=== PATIENT | female | born 1955 | race Caucasian/White ===

== ENCOUNTER 2021-02-10 10:51 | Outpatient (CLI) | payer MEDICARE, OTHER, SELFPAY ==
--- NOTE | 2021-02-10 11:13 | MR_ITS ---
WS: [id number] MRI HEAD WITH CONTRAST TECHNIQUE: Sagittal T1, T2 axial, T2 axial FLAIR, axial susceptibility weighted imaging, axial diffus ion weighted images, and coronal T2 images were obtained. Pre and post-T1 axial and post T1 coronal i mages. ADC and FSPGR images. CLINICAL INFORMATION: G35 - Multiple sclerosis COMPARISON: MRI and October 2014 FINDINGS: No evidence of restricted diffusion to suggest acute ischemia. Ventricular system and basal cisterns are patent. Moderate patchy supratentorial white matter lesions relatively stable in appearance since April 27, 2018. New small demyelinating lesion in the left periventricular atrial white matter. Additional new small lesion in the right cerebellum. Moderate parenchymal volume loss is unchanged. N o significant atrophy of the corpus callosum. Mild T1 hypointense lesion load. No hemosiderin on susceptibly weighted images. Normal optic chiasm a nd pituitary infundibulum. Mild symmetric atrophy temporal lobes and hippocampal formations. Normal c avernous sinuses and Meckel's cave. No abnormal gadolinium enhancement to indicate active disease. No rmal visualized dural venous sinuses. MR/MR head wo/w con [id number] IMPRESSION: 1. No enhancing lesions to indicate active disease. 2. New small lesion in the left periatrial white matter measuring 6 mm. Additi onal new small lesion in the right cerebellum. No enhancement. 3. Otherwise stable moderate supratentorial white matter changes compatible wi th demyelinating disease. 4. Moderate parenchymal volume loss is unchanged. 5. Mild T1 hypointense lesion load. 6. No significant atrophy of the corpus callosum. 7. Normal optic chiasm and pituitary infundibulum.
[2021-02-10] MEDS: gadobenate dimeglumine 20 mL vial IV (12:43)
== END 2021-02-10 10:52 | disposition home or self-care (01) ==
LOC: RADSHAW 11:00
PROVIDERS: Family Provider Family Medicine; PCP Family Medicine; Visit Provider Specialist
DX: G35 Multiple sclerosis (principal)
CPT/HCPCS: 70553; A9577

== ENCOUNTER 2021-02-26 12:04 | Outpatient (CLI) | payer MEDICARE, OTHER, SELFPAY ==
--- NOTE | 2021-02-26 11:45 | MR_ITS ---
WS: [id number] MRI CERVICAL SPINE NONCONTRAST AND CONTRAST TECHNIQUE: Sagittal T1, T2 and STIR imaging. Axial T2, gradient, and fiesta imaging. Post gadolinium imaging was obtained. CLINICAL INFORMATION: G35 - Multiple sclerosis COMPARISON: September 11 FINDINGS: Straightening of the normal cervical lordosis. Chronic demyelinating plaques in the cervical cord. No abnormal gadolinium enhancement to indicate active disease. Number and distribution of lesions is no t significantly changed. No significant cord atrophy. Mild spondylitic changes. C2-C3: Normal. C3-C4: Mild osteophytic ridging. Mild right greater than left bony foraminal narrowing. Mild facet ar thropathy. Spinal canal is patent. C4-C5: Mild disc osteophytic ridging. Mild central canal stenosis. Moderate bilateral bony foraminal narrowing. Mild central canal stenosis. C5-C6: Mild disc bulging with osteophytic ridging. Moderate left and no significant right foraminal n arrowing. Mild facet arthropathy. C6-C7: Disc osteophyte complex with endplate ridging. Mild central canal stenosis. Moderate to severe bilateral bony foraminal narrowing. C7-T1: Mild left and no significant right foraminal narrowing. Spinal canal is patent. Visualized brain stem structures: Normal. Prevertebral soft tissues: Normal. MR/MR cervical spine wo/w [id number] IMPRESSION: 1. Straightening of the normal cervical lordosis with mild spondylitic changes . 2. Chronic demyelinating plaques in the cervical cord not significantly change d from previous. No enhancing lesions to indicate active disease. 3. No significant cord atrophy. 4. Mild central canal stenosis C4-C5 and C6-C7. 5. Bony foraminal narrowing described above.
[2021-02-26] MEDS: gadobenate dimeglumine 20 mL vial IV (13:50)
== END 2021-02-26 12:05 | disposition home or self-care (01) ==
PROVIDERS: PCP Family Medicine; Visit Provider Specialist
DX: G35 Multiple sclerosis (principal); M48.02 Spinal stenosis, cervical region
CPT/HCPCS: 72156; A9577

== ENCOUNTER → 2021-03-11 14:57 | Outpatient (BNVA) | payer MEDICARE, OTHER, SELFPAY | PROVIDERS: PCP Family Medicine; Visit Provider Specialist | DX: G35 Multiple sclerosis (principal); F17.210 Nicotine dependence, cigarettes, uncomplicated | CPT/HCPCS: 99215 ==

== ENCOUNTER → 2021-09-11 16:25 | Outpatient (BNVA) | payer MEDICARE, SELFPAY | PROVIDERS: PCP Family Medicine; Visit Provider Specialist | DX: G35 Multiple sclerosis (principal); F17.210 Nicotine dependence, cigarettes, uncomplicated | CPT/HCPCS: 99213 ==

== ENCOUNTER 2021-10-29 06:00 | Outpatient (RCR) | payer MEDICARE, SELFPAY | END 2021-11-01 23:59 | disposition home or self-care (01) | LOC: GPT 06:00 | PROVIDERS: PCP Family Medicine; Referring Provider Specialist; Visit Provider Specialist | DX: G35 Multiple sclerosis (principal); M62.81 Muscle weakness (generalized); R26.81 Unsteadiness on feet; R26.9 Unspecified abnormalities of gait and mobility | CPT/HCPCS: 97110; 97162 ==

== ENCOUNTER 2021-11-02 | Outpatient (RCR) | payer MEDICARE, SELFPAY | END 2021-12-02 23:59 | disposition home or self-care (01) | LOC: GPT | PROVIDERS: PCP Family Medicine; Referring Provider Specialist; Visit Provider Specialist | DX: G35 Multiple sclerosis (principal); R26.9 Unspecified abnormalities of gait and mobility; R26.81 Unsteadiness on feet; M62.81 Muscle weakness (generalized) | CPT/HCPCS: 97110; 97112; G0283 ==

== ENCOUNTER 2021-12-03 06:00 | Outpatient (RCR) | payer MEDICARE, SELFPAY | END 2022-01-01 23:59 | disposition home or self-care (01) | LOC: GPT 06:00 | PROVIDERS: PCP Family Medicine; Referring Provider Specialist; Visit Provider Specialist | DX: G35 Multiple sclerosis (principal); R26.81 Unsteadiness on feet; R26.9 Unspecified abnormalities of gait and mobility; M62.81 Muscle weakness (generalized) | CPT/HCPCS: 97110; 97112; 97530; G0283 ==

== ENCOUNTER → 2022-06-22 15:53 | Outpatient (BNVA) | payer MEDICARE, SELFPAY | PROVIDERS: PCP Family Medicine; Referring Provider Specialist; Visit Provider Specialist | DX: G35 Multiple sclerosis (principal); M62.838 Other muscle spasm; G24.8 Other dystonia; F17.210 Nicotine dependence, cigarettes, uncomplicated | CPT/HCPCS: 99213 ==

== ENCOUNTER → 2022-11-03 16:41 | Outpatient (BNVA) | payer MEDICARE, SELFPAY | PROVIDERS: PCP Family Medicine; Visit Provider Family Medicine | DX: E09.3 Drug or chemical induced diabetes mellitus with ophthalmic complications (principal); E11.9 Type 2 diabetes mellitus without complications; E78.00 Pure hypercholesterolemia, unspecified; R73.9 Hyperglycemia, unspecified; N28.89 Other specified disorders of kidney and ureter | CPT/HCPCS: 80053; 80061; 83036; 83880; 84436; 84443; 85025 ==

== ENCOUNTER → 2023-02-04 09:26 | Outpatient (BNVA) | payer MEDICARE, SELFPAY | PROVIDERS: PCP Family Medicine; Visit Provider Family Medicine | DX: E03.9 Hypothyroidism, unspecified (principal); E11.9 Type 2 diabetes mellitus without complications; E78.00 Pure hypercholesterolemia, unspecified; I10 Essential (primary) hypertension; R53.82 Chronic fatigue, unspecified; F41.1 Generalized anxiety disorder; G35 Multiple sclerosis; Z79.899 Other long term (current) drug therapy | CPT/HCPCS: 80053; 80061; 82306; 82607; 82670; 82679; 83001; 83002; 83036; 84403; 84439; 84443; 84681; 85025; 85651; 86140; 86160; 86162; 86235; 86255; 86376 ==

== ENCOUNTER → 2023-07-29 15:16 | Outpatient (BNVA) | payer MEDICARE, SELFPAY | PROVIDERS: PCP Family Medicine; Visit Provider Specialist | DX: G35 Multiple sclerosis (principal); R26.9 Unspecified abnormalities of gait and mobility | CPT/HCPCS: 99214 ==

== ENCOUNTER → 2023-08-02 13:04 | Outpatient (BNVA) | payer MEDICARE, SELFPAY | PROVIDERS: PCP Family Medicine; Visit Provider Specialist | DX: G35 Multiple sclerosis (principal); R26.9 Unspecified abnormalities of gait and mobility; M62.838 Other muscle spasm | CPT/HCPCS: 80048 ==

== ENCOUNTER → 2023-12-01 15:30 | Outpatient (BNVA) | payer MEDICARE, SELFPAY | PROVIDERS: PCP Family Medicine; Visit Provider Nurse Practitioner Family | DX: E11.9 Type 2 diabetes mellitus without complications (principal); E78.5 Hyperlipidemia, unspecified; E03.9 Hypothyroidism, unspecified; E55.9 Vitamin D deficiency, unspecified; I10 Essential (primary) hypertension | CPT/HCPCS: 80053; 82306; 83036; 84443; 85025 ==

== ENCOUNTER → 2024-02-23 10:00 | Outpatient (BNVA) | payer MEDICARE, SELFPAY | PROVIDERS: PCP Nurse Practitioner Family; Visit Provider Nurse Practitioner Family | DX: I10 Essential (primary) hypertension (principal) | CPT/HCPCS: 84443 ==

== ENCOUNTER → 2024-04-04 14:00 | Outpatient (BNVA) | payer MEDICARE, SELFPAY | PROVIDERS: PCP Nurse Practitioner Family; Visit Provider Nurse Practitioner Family | DX: I10 Essential (primary) hypertension (principal) | CPT/HCPCS: 84443 ==

== ENCOUNTER → 2024-05-22 14:00 | Outpatient (BNVA) | payer MEDICARE, SELFPAY | PROVIDERS: PCP Nurse Practitioner Family; Visit Provider Nurse Practitioner Family | DX: I10 Essential (primary) hypertension (principal); R79.89 Other specified abnormal findings of blood chemistry | CPT/HCPCS: 84443 ==

== ENCOUNTER → 2024-10-26 16:04 | Outpatient (BNVA) | payer MEDICARE, SELFPAY | PROVIDERS: PCP Nurse Practitioner Family; Visit Provider Specialist | DX: M51.16 Intervertebral disc disorders with radiculopathy, lumbar region (principal); G35 Multiple sclerosis; R29.90 Unspecified symptoms and signs involving the nervous system; R26.9 Unspecified abnormalities of gait and mobility | CPT/HCPCS: 99214 ==

== ENCOUNTER → 2024-11-08 14:40 | Outpatient (BNVA) | payer MEDICARE, SELFPAY | PROVIDERS: PCP Nurse Practitioner Family; Visit Provider Family Medicine | DX: E55.9 Vitamin D deficiency, unspecified (principal); I10 Essential (primary) hypertension; E78.5 Hyperlipidemia, unspecified; E11.9 Type 2 diabetes mellitus without complications; E03.9 Hypothyroidism, unspecified; G35 Multiple sclerosis; R79.89 Other specified abnormal findings of blood chemistry; E11.51 Type 2 diabetes mellitus with diabetic peripheral angiopathy without gangrene; Z79.4 Long term (current) use of insulin | CPT/HCPCS: 80053; 80061; 82043; 82306; 82607; 82746; 83036; 84439; 84443; 85025 ==

== ENCOUNTER → 2025-06-20 15:05 | Outpatient (BNVA) | payer MEDICARE, SELFPAY | PROVIDERS: PCP Family Medicine; Visit Provider Family Medicine | DX: R79.89 Other specified abnormal findings of blood chemistry (principal); I10 Essential (primary) hypertension; E78.2 Mixed hyperlipidemia; E11.51 Type 2 diabetes mellitus with diabetic peripheral angiopathy without gangrene; Z79.4 Long term (current) use of insulin; E03.9 Hypothyroidism, unspecified; E55.9 Vitamin D deficiency, unspecified; R30.0 Dysuria | CPT/HCPCS: 80053; 80061; 81000; 82043; 82306; 82607; 83036; 83735; 84439; 84443; 85025 ==